=== PATIENT | male | born 1985 | race Caucasian/White ===

== ENCOUNTER 2016-08-28 17:04 | Day surgery (SDC) | payer BC ==
[~2016-08-28] VITALS: Ht 180.3 cm; Wt 120.0 kg
[~2016-08-28 17:04] MED LIST: ALBUTEROL SULF8.5 GM IH; AMOXICILLIN875 MG PO; ANTIVERT25 MG PO; LISINOPRIL10 MG PO; MAGIC MOUTHWASH1 ML MM; MOTRIN600 MG PO; MOTRIN800 MG PO; MUCINEX D ER T1 EAC1 PO; NOHOMEMEDS; NORCO 5/3251 TABLET PO; OXYCODONE H5 MG/5 ML PO; PEN-VEE K,VEET500 MG PO; PREDNISONE20 MG PO; PRILOSEC40 MG PO; ROBITUSSIN AC,T10 ML PO; TESSALON200 MG PO; ZOFRAN4 MG PO; [UNRECOGNIZED DRUG - REMARK]
[2016-08-28 17:47] LABS: HEMATOCRIT 45.4 % (38.0-50.0); MCH 29.8 PG (29.0-34.0); MCHC 35.2 G/DL (30.0-36.0); MCV 84.5 FL (86-99); MEAN PLAT.VOLUME 10.5 uM^3 (9.0-12.4); PLATELET COUNT 223 K/uL (156-360); RBC DIS.WIDTH-CV 13.7 % (11.8-14.6); RBC DIS.WIDTH-SD 42.2 % (39-53); RED BLOOD COUNT 5.37 M/uL (4.00-5.50); WHITE BLOOD COUNT 21.7 K/uL (4.1-10.2)
[2016-08-28 17:57] LABS: CHLORIDE 103 mEq/L (99-109); POTASSIUM 3.9 mEq/L (3.7-5.4); SODIUM 139 mEq/L (136-147)
[2016-08-28 17:59] LABS: GLUCOSE 109 mg/dL (70-99)
[2016-08-28 18:00] LABS: ANION GAP 8 MEQ/L (2-14)
[2016-08-28 18:01] LABS: TOTAL BILIRUBIN 0.3 mg/dL (0.0-1.0)
[2016-08-28 18:03] LABS: ALKALINE PHOSPHATASE 82 IU/L (3-129); GFR ESTIMATE (CALCULATED) > 59 mL/min/
[2016-08-28 18:04] LABS: UREA NITROGEN (BUN) 6 mg/dL (9-23)
[2016-08-28 18:06] LABS: ADD MIUA? NO; BILIRUBIN NEGATIVE; BLOOD NEGATIVE; COLOR YELLOW ((YELLOW)); GLUCOSE (STRIP) NEGATIVE; KETONES NEGATIVE; LEUKOCYTES NEGATIVE; NITRITE NEGATIVE; PROTEIN (STRIP) NEGATIVE; SPECIFIC GRAVITY 1.015 (1.000-1.030); UCUL ADDED? NO; UROBILINOGEN 0.2 MG/DL (0.2-1.0)
[2016-08-29] VITALS: BP 121/69
[2016-08-29 04:00] VITALS: BP 140/85
[2016-08-29 07:09] LABS: HEMATOCRIT 45.5 % (38.0-50.0); MCH 30.3 PG (29.0-34.0); MCHC 34.3 G/DL (30.0-36.0); MCV 88.3 FL (86-99); MEAN PLAT.VOLUME 11.7 uM^3 (9.0-12.4); PLATELET COUNT 242 K/uL (156-360); RBC DIS.WIDTH-CV 13.9 % (11.8-14.6); RED BLOOD COUNT 5.15 M/uL (4.00-5.50); WHITE BLOOD COUNT 21.4 K/uL (4.1-10.2)
[2016-08-29 07:36] LABS: ANION GAP 9 MEQ/L (2-14); CHLORIDE 104 MEQ/L (99-109); GFR ESTIMATE (CALCULATED) > 59 mL/min/; GLUCOSE 99 mg/dL (70-99); POTASSIUM 4.5 MEQ/L (3.7-5.4); SAMPLE HEMOLYSIS CHECK 0; SAMPLE ICTERIC CHECK 0; SAMPLE LIPEMIA CHECK 0; SODIUM 140 MEQ/L (136-147); UREA NITROGEN (BUN) 5 mg/dL (9-23)
[2016-08-29 08:00] VITALS: BP 120/68
[2016-08-29 12:00] VITALS: BP 109/56
[2016-08-29] MEDS ORDERED: OXYCODONE HCL5 MG PO (15:05)
== END 2016-08-29 16:39 | disposition home or self-care (01) ==
LOC: EME 17:04 → SDC 20:20 → 2EAST 21:42 → 2SOUTH 21:42 → 2EAST 23:08
PROVIDERS: Surgery
PROC: 0DTJ4ZZ Resection of Appendix, Percutaneous Endoscopic Approach (ICD-10-PCS; principal; 2016-08-28)
DX: K35.80 Unspecified acute appendicitis (principal); F17.200 Nicotine dependence, unspecified, uncomplicated
CPT/HCPCS: 74177; 80048; 80053; 81003; 85027; 88304; 93005; 99281; 99285; G0378; J0330; J1100; J1885; J2270; J2405; J3010; J7030

== ENCOUNTER 2017-09-25 12:02 | Emergency (ER) | payer BC ==
[~2017-09-25] VITALS: Ht 180.3 cm; Wt 119.9 kg
[~2017-09-25 12:02] MED LIST changes: +OXYCODONE HCL5 MG PO
[2017-09-25 13:13] VITALS: BP 168/102
== END 2017-09-25 13:16 | disposition home or self-care (01) ==
LOC: EME 12:02
DX: B34.9 Viral infection, unspecified (principal); F17.200 Nicotine dependence, unspecified, uncomplicated
CPT/HCPCS: 80048; 85027; 87502; 99281; 99283